=== PATIENT | male | born 1975 | race Two or more races ===

== ENCOUNTER 2024-11-02 05:30 | Day surgery (SDC) | payer OTHER ==
[2024-10-27 12:16] LABS: HEMATOCRIT 45.2 % (39.0-48.0); MEAN CELL VOLUME 85.3 fL (80.0-100.00); MEAN CORPUSCULAR HEMOGLOBIN 28.3 pg (27.00-32.0); MEAN CORPUSCULAR HGB CONC 33.2 g/dl (32.0-36.0); PLATELET COUNT 267 K/uL (150-450); RED BLOOD COUNT 5.31 M/uL (4.00-6.00); RED CELL DISTRIBUTION WIDTH 13.6 % (11.5-14.5)
[2024-10-27 12:27] VITALS: BP 126/83
[2024-10-27 12:38] LABS: PARTIAL THROMBOPLASTIN TIME 29.6 SECONDS (22.0-34.0); PROTHROMBIN TIME 10.9 SECONDS (9.0-11.5)
[2024-10-27 12:53] LABS: PH,URINE 5.5 (5.0-8.0); URINE APPEARANCE Clear; URINE BILIRRUBIN Negative (NEGATIVE); URINE BLOOD Negative; URINE COLOR Yellow; URINE GLUCOSE Negative (NEGATIVE); URINE KETONE 15 (NEGATIVE); URINE LEUKOCYTE Moderate; URINE NITRATE Negative; URINE PROTEIN Negative (NEGATIVE); URINE UROBILINOGEN 0.2 E.U./dl
[2024-10-27 12:54] LABS: URINE BACTERIA 63.6 uL (0.0-1933); URINE EPITHELIAL CELLS 1.5 uL (0.0-38.8); URINE RBC 4.5 uL (0.0-20.8); URINE WBC 51.7 uL (0.0-23.2)
[2024-10-27 13:05] LABS: URINE CAST 0.44 uL (0.0-1.40)
[2024-10-27 13:10] LABS: ALBUMIN 3.5 gm/dL (3.4-5.0); BILIRUBIN TOTAL 0.56 mg/dL (0.3-1.2); BILIRUBIN,CONJUGATED 0.15 mg/dL (0.0-0.2); BILIRUBIN,UNCONJUGATED 0.41 mg/dL (0.0-0.6); CALCIUM 9.1 mg/dL (8.5-10.1); CREATININE SERUM 0.96 mg/dL (0.70-1.30); GFR 82.58; POTASSIUM 4.34 mEq/L (3.5-5.1); TOTAL PROTEIN 7.8 gm/dL (6.4-8.2)
[~2024-11-02] VITALS: Ht 170.2 cm; Wt 83.9 kg
[2024-11-02] MEDS ORDERED: BUPIVACAINE HCL 0.5% 50ML VIAL ONE (06:57)
[2024-11-02] MEDS ORDERED: CEFAZOLIN SODIUM 1,000 MG VIAL ONE (07:02)
[2024-11-02] MEDS ORDERED: CELEBREX200MG PO (08:59)
== END 2024-11-02 11:35 | disposition home or self-care (01) ==
LOC: CIR.AMB 05:30 → EDSTATUS 09:45 → CIR.AMB 09:45
PROVIDERS: ATTEND Surgery
DX: D21.11 Benign neoplasm of connective and other soft tissue of right upper limb, including shoulder (principal)